=== PATIENT | female | born 1995 | race Caucasian/White ===

== ENCOUNTER 2017-08-05 04:53 | Emergency (ER) | payer OTHER ==
[2017-08-05] MEDS ORDERED: ONDANSETRON ODT 4 MG TABLET TL STA (05:05)
[2017-08-05] MEDS ORDERED: MAG HYDROX/AL HYDROX/SIMETH 30 ML UDC PO STA (05:43)
[2017-08-05] MEDS ORDERED: FAMOTIDINE 20 MG TABLET PO STA (05:43)
[2017-08-05] MEDS ORDERED: LIDOCAINE VISCOUS 2% 15 ML UDC MM STA (05:43)
[2017-08-05 06:08] LABS: BASOPHILS % (AUTO) 0.1 %; EOSINOPHILS % (AUTO) 0.1 %; HGB - HEMOGLOBIN 15.4 g/dL (12.0-16.0); LYMPHOCYTES # (AUTO) 0.5 10^3/uL (1.5-3.5); LYMPHOCYTES % (AUTO) 3.8 %; MEAN CORPUSCULAR HEMOGLOBIN 30.4 pg (27.0-31.0); MEAN CORPUSCULAR HGB CONC 33.6 g/dL (32.0-36.0); MEAN CORPUSCULAR VOLUME 90.6 fL (81.0-99.0); MEAN PLATELET VOLUME 8.6 fL (7.9-10.8); MONOCYTES # (AUTO) 0.4 10^3/uL (0.0-1.0); MONOCYTES % (AUTO) 3.2 %; NEUTROPHILS # (AUTO) 11.5 10^3/uL (1.5-6.6); NEUTROPHILS % (AUTO) 92.8 %; PLT - PLATELET COUNT 238 10^3/uL (130-450); RED BLOOD COUNT 5.06 10^6/uL (4.20-5.40); RED CELL DISTRIBUTION WIDTH 13.6 % (12.0-15.0); WHITE BLOOD COUNT 12.4 x10^3/uL (4.8-10.8)
[2017-08-05 06:22] LABS: ALBUMIN 4.7 g/dL (3.2-5.5); ALBUMIN/GLOBULIN RATIO 1.5 (1.0-2.2); BILIRUBIN,TOTAL 0.7 mg/dL (0.2-1.0); CALCIUM 9.3 mg/dL (8.5-10.3); CREATININE 0.7 mg/dL (0.4-1.0); MAGNESIUM 1.8 mg/dL (1.7-2.8); PHOSPHORUS 1.9 mg/dL (2.5-4.6); TOTAL PROTEIN 7.9 g/dL (6.7-8.2)
--- NOTE | 2017-08-05 06:25 | ED Physician Documentation ---
PD HPI NVD - Stated complaint Stated Complaint: VOMITING - Chief complaint Chief Complaint: Abd Pain - History obtained from History obtained from: Patient, Family - History of Present Illness Timing - onset: Today Timing - details: Abrupt onset Associated symptoms: Abdominal pain Contributing factors: Bad food Similar symptoms before: No diagnosis Recently seen: Not recently seen - Additonal information Additional information: Patient is a 22 year old female with a history of intermittent abdominal pain who is presenting to the emergency department for nausea, vomiting and abdominal pain. According to patient and mother, patient had recently been sick the flu. Patient had just gotten over her symptoms and yesterday evening tried to eat a cinnabun. Patient states that she then developed abdominal pain and multiple episodes of vomiting. Mother reports that the patient has a long history of abdominal pain but has never had a full work up or diagnosis. Review of Systems Constitutional: denies: Fever, Chills Eyes: reports: Reviewed and negative Ears: reports: Reviewed and negative Nose: reports: Reviewed and negative Throat: reports: Reviewed and negative Cardiac: reports: Reviewed and negative Respiratory: reports: Reviewed and negative GI: reports: Abdominal Pain, Nausea, Vomiting. denies: Constipation, Diarrhea : denies: Dysuria, Frequency Skin: denies: Rash, Lesions Immunocompromised: denies: Immunocompromised PD PAST MEDICAL HISTORY - Past Medical History Past Medical History: No - Past Surgical History Past Surgical History: No - Present Medications Home Medications: Ambulatory Orders Medication Instructions Recorded Confirmed Ondansetron Odt [Zofran] 4 mg TL Q6H PRN #20 tablet 08/05/17 - Allergies Allergies/Adverse Reactions: Allergies Allergy/AdvReac Type Severity Reaction Status Date / Time No Known Drug Allergies Allergy Verified 08/05/17 05:01 - Social History Does the pt smoke?: No Smoking Status: Never smoker Does the pt drink ETOH?: Yes Does the pt have substance abuse?: No - POLST Patient has POLST: No PD ED PE NORMAL - Vitals Vital signs reviewed: Yes - General General: Alert and oriented X 3 - HEENT HEENT: Atraumatic - Cardiac Cardiac: No murmur - Respiratory Respiratory: No respiratory distress, Clear bilaterally - Abdomen Abdomen: Soft - Derm Derm: Normal color, Warm and dry - Extremities Extremities: No deformity - Neuro Neuro: Alert and oriented X 3, No motor deficit Eye Opening: Spontaneous Motor: Obeys Commands Verbal: Oriented GCS Score: 15 PD ED PE EXPANDED - HEENT HEENT: Dry mucous membranes - Cardiac Cardiac: Tachy - Abdomen Abdomen: Tender to palpation, Epigastric, Generalized/diffuse. No: Rebound, Guarding Results - Vitals Vitals: Vital Signs - 24 hr 08/05/17 04:59 Temperature 36.6 C Heart Rate 120 H Respiratory 20 Rate Blood Pressure 132/79 H O2 Saturation 99 Oxygen O2 Source Room air - Labs Labs: Laboratory Tests 08/05/17 05:58 WBC 12.4 H RBC 5.06 Hgb 15.4 Hct 45.8 MCV 90.6 MCH 30.4 MCHC 33.6 RDW 13.6 Plt Count 238 MPV 8.6 Neut # 11.5 H Lymph # 0.5 L [place] # 0.4 Eos # 0.0 Baso # 0.0 Absolute Nucleated RBC 0.01 Nucleated RBC % 0.1 PD MEDICAL DECISION MAKING - ED course Complexity details: reviewed old records, reviewed results, re-evaluated patient , considered differential, d/w patient, d/w family ED course: Patient was seen and examined at bedside. Patient stated that she did not want an IV but agreed to blood draw. Patient was treated with zofran 8mg. Patient was given small sips of water. Patient was then treated with pepcid, maalox and viscous lidocaine. Patient's pain improved and patient had no episodes of emesis in the emergency department. Patient was able to tolerate PO and was stable for discharge with outpatient follow up. Departure - Departure Disposition: 01 Home, Self Care Clinical Impression: Gastritis, Vomiting Condition: Good Instructions: ED Nausea Vomiting Follow-Up: primary,care provider [Other] - Within 3 Days Prescriptions: Ondansetron Odt [Zofran] 4 mg TL Q6H PRN #20 tablet PRN Reason: Nausea / Vomiting Comments: Your diagnostics today were within normal limits. It is important to take zofran 20 minutes before eating. The most important thing is staying hydrated with gatorade or electrolyte solution. You can take pepcid or maalox as needed for pain as well as tylenol. You should follow up with your doctor to work up your abdominal and pelvic pain. You may return to the emergency department at any time for new, worsening or uncontrollable symptoms.
[2017-08-05 06:31] LABS: HCG,QUALITATIVE BLOOD NEGATIVE
[2017-08-05 06:45] VITALS: BP 118/80
== END 2017-08-05 06:45 | disposition home or self-care (01) ==
LOC: ED 04:53
DX: K29.70 Gastritis, unspecified, without bleeding (principal); R11.10 Vomiting, unspecified
CPT/HCPCS: 36415; 80053; 83690; 83735; 84100; 84703; 85025; 99283; A9270; Q0162; 81025